=== PATIENT | male | born 1955 | race Asian ===

== ENCOUNTER 2020-10-06 17:21 | Emergency (ER) | payer OTHER ==
[~2020-10-06] VITALS: Ht 180.3 cm; Wt 64.4 kg
[2020-10-06 17:24] VITALS: BP 147/73; TEMP 98.1
[2020-10-06 17:49] LABS: PLATELET COUNT 261 K/uL (142-355)
[2020-10-06 17:54] LABS: POTASSIUM 3.6 mmol/L (3.6-5.2)
[2020-10-06] MEDS ORDERED: HALO50IN4 IM (21:28)
[2020-10-06] MEDS ORDERED: KP FOLIC ACID1 MG PO (21:29)
[2020-10-06] MEDS ORDERED: PAROXETINE40 MG PO (21:30)
[2020-10-06] MEDS ORDERED: BENZ1TAB43 PO (21:31)
[2020-10-06] MEDS ORDERED: BREO ELLIPTA 101 INH PO ×2 (21:32→21:36)
[2020-10-06] MEDS ORDERED: DOCU SOFT100 MG PO (21:33)
[2020-10-06] MEDS ORDERED: BUSPIRONE HYDRO10 MG PO (21:33)
[2020-10-21] MEDS ORDERED: ACET-206 PO (09:08)
[2020-10-21] MEDS ORDERED: OLANZAPINE10 MG PO (09:09)
[2020-10-21] MEDS ORDERED: FLUOXETINE20 MG PO (09:10)
[2020-10-21] MEDS ORDERED: HYDR5TAB9 PO (09:10)
[2020-10-21] MEDS ORDERED: CHOL100034 PO (09:11)
[2020-10-21] MEDS ORDERED: BUDE1AER3 INH (09:11)
[2020-10-21] MEDS ORDERED: BUSP5TAB2 PO (09:11)
[2020-10-21] MEDS ORDERED: PARO20TA3 PO (09:12)
== END 2020-10-06 18:33 | disposition still patient (30) ==
LOC: ED 17:21
PROVIDERS: Hospitalist
DX: F20.89 Other schizophrenia (principal); R46.89 Other symptoms and signs involving appearance and behavior; Z72.811 Adult antisocial behavior; Z11.59 Encounter for screening for other viral diseases; Z04.6 Encounter for general psychiatric examination, requested by authority
CPT/HCPCS: 80053; 81000; 85027; 87635; 93005; 99283; 99285; U0003